=== PATIENT | female | born 1960 | race Hispanic/Latino ===

== ENCOUNTER 2019-03-26 05:30 | Day surgery (SDC) | payer OTHER ==
[~2019-03-26] VITALS: Ht 160 cm; Wt 60.3 kg
[2019-03-26] MEDS ORDERED: SODIUM CHLORIDE 0.9% 1000ML 1,000 ML IV ONE (05:51)
[2019-03-26 06:55] VITALS: BP 126/62
[2019-03-26] MEDS ORDERED: IBUP-2077 PO (07:16)
[2019-03-26] MEDS ORDERED: METH500T6 PO (07:16)
[2019-03-26] MEDS ORDERED: BENZ-51 PO (07:16)
[2019-03-26] MEDS ORDERED: OMEP20CA10 PO (07:16)
[2019-03-26 08:30] VITALS: BP 100/48
[2019-03-26 08:35] VITALS: BP 113/68
[2019-03-26 08:40] VITALS: BP 117/69
[2019-03-26 08:45] VITALS: BP 126/67
== END 2019-03-26 09:03 | disposition home or self-care (01) ==
LOC: DAH 05:30 → ENDO 05:30
PROVIDERS: ATTEND Internal Medicine
DX: Z12.11 Encounter for screening for malignant neoplasm of colon (principal); D12.0 Benign neoplasm of cecum; D12.3 Benign neoplasm of transverse colon; D12.5 Benign neoplasm of sigmoid colon; K22.8 Other specified diseases of esophagus; K29.50 Unspecified chronic gastritis without bleeding; K31.89 Other diseases of stomach and duodenum; K62.1 Rectal polyp; K63.5 Polyp of colon; K57.30 Diverticulosis of large intestine without perforation or abscess without bleeding; K64.0 First degree hemorrhoids; Z80.0 Family history of malignant neoplasm of digestive organs
CPT/HCPCS: 43239; 45380; 45385; A4606; J7030

== ENCOUNTER → 2019-03-28 | Outpatient (CLI) | payer OTHER ==
[~2019-03-28] MED LIST: BENZ-51 PO; IBUP-2077 PO; METH500T6 PO; OMEP20CA10 PO
== END | disposition home or self-care (01) ==
LOC: RAH 07:45 → EDUNIT# 07:45
PROVIDERS: ATTEND Family Medicine
DX: N63.20 Unspecified lump in the left breast, unspecified quadrant (principal); N64.4 Mastodynia
CPT/HCPCS: 76641; 77066

== ENCOUNTER → 2020-03-20 | Outpatient (CLI) | payer OTHER ==
[~2020-03-20] MED LIST changes: -OMEP20CA10 PO; +OMEP20CA12 PO
== END | disposition home or self-care (01) ==
LOC: RAH 07:40
PROVIDERS: ATTEND Internal Medicine Gastroenterology
DX: R10.13 Epigastric pain (principal)
CPT/HCPCS: 76700

== ENCOUNTER 2021-01-19 05:52 | Day surgery (SDC) | payer OTHER ==
[~2021-01-19] VITALS: Ht 160 cm; Wt 63.0 kg
[~2021-01-19 05:52] MED LIST changes: +METH-811 PO; -METH500T6 PO
[2021-01-19] MEDS ORDERED: SODIUM CHLORIDE 0.9% 1000ML 1,000 ML IV ONE (06:15)
[2021-01-19 06:37] VITALS: BP 122/56
[2021-01-19] MEDS ORDERED: PROPOFOL 10 MG/ML 20ML VIAL IV ONE (07:08)
[2021-01-19] MEDS ORDERED: LIDOCAINE HCL 1% 20 ML VIAL ONE (07:08)
[2021-01-19] MEDS ORDERED: SIMETHICONE 40 MG/0.6 ML ML ONE (07:13)
[2021-01-19 07:24] VITALS: BP 103/50
[2021-01-19 07:28] VITALS: BP 110/53
[2021-01-19 07:34] VITALS: BP 113/61
[2021-01-19 07:40] VITALS: BP 123/69
[2021-01-19 07:45] VITALS: BP 124/74
== END 2021-01-19 07:50 | disposition home or self-care (01) ==
LOC: DAH 05:52 → ENDO 05:52
PROVIDERS: ATTEND Internal Medicine Gastroenterology
DX: K21.00 Gastro-esophageal reflux disease with esophagitis, without bleeding (principal); Z20.822 Contact with and (suspected) exposure to COVID-19; K59.00 Constipation, unspecified; E78.5 Hyperlipidemia, unspecified; K31.89 Other diseases of stomach and duodenum; Z98.890 Other specified postprocedural states; Z90.710 Acquired absence of both cervix and uterus; Z86.010 Personal history of colon polyps; Z98.891 History of uterine scar from previous surgery; Z80.0 Family history of malignant neoplasm of digestive organs; Z79.899 Other long term (current) drug therapy
CPT/HCPCS: 43239; A4215; A4221; A4222; A4223; A4606; A4620; A4663; C9803; J2704; J7030; U0003

== ENCOUNTER → 2022-11-23 | Outpatient (CLI) | payer OTHER ==
[~2022-11-23] MED LIST changes: -BENZ-51 PO; +BENZ-70 PO
== END | disposition home or self-care (01) ==
LOC: LAB 11:51
PROVIDERS: ATTEND Internal Medicine Gastroenterology
DX: Z86.010 Personal history of colon polyps (principal)
CPT/HCPCS: 87426